=== PATIENT | female | born 2000 | race Caucasian/White ===

== ENCOUNTER 2020-09-08 20:19 | Emergency (ER) | payer BC, SELFPAY ==
--- NOTE | ~2020-09-08 | XR_ITS ---
EXAMINATION: XR chest 2V DATE: 09/08/2020 21:26 INDICATION: Midsternal chest pain TECHNIQUE: PA and lateral views of the chest were obtained. COMPARISON: None FINDINGS: The lungs are clear with no focal airspace opacities, pulmonary edema, pleural effusion or pneumothor ax. The cardiomediastinal silhouette is normal. Visualized bones and soft tissues are unremarkable. IMPRESSION: 1. Normal chest radiograph. Reviewed, dictated and finalized at location A. IMPRESSION: 1. Normal chest radiograph.
[2020-09-08 21:04] VITALS: BP 120/74; PULSE 101; RESP 18; TEMP 36.5; O2SAT 96
--- NOTE | 2020-09-08 21:07 | ECG_ITS ---
Measurements Intervals [place] Rate: 97 P: 69 MT: 148 QRS: 75 QRSD: 90 T: 48 QT: 355 QTc: 451 Interpretive Statements SINUS RHYTHM POSSIBLE LEFT ATRIAL ENLARGEMENT INCOMPLETE RIGHT BUNDLE BRANCH BLOCK BASELINE ARTIFACT- II, III, AVR, AVL, AVF BORDERLINE ECG Electronically Signed On 09-09-2020 7:31:17 CDT by Henrique Díaz D.O.
[2020-09-08 21:17] LABS: Basophils Percent Auto 0.3 % (0.2-1.2); Eosinophils Absolute Auto 0.1 K/mm3 (0-0.3); Eosinophils Percent Auto 1.9 % (0-4.4); Hematocrit 38.1 % (37.0-47.0); Immature Granulocyte Absolute 0.01 K/mm3 (0.00-0.031); Immature Granulocyte Percent A 0.1 % (0-0.5); Lymphocytes Absolute Auto 2.47 K/mm3 (0.9-3.2); Lymphocytes Percent Auto 35.3 % (18.3-44.2); Mean Corpuscular HGB Conc 34.1 g/dl (32-36); Mean Corpuscular Hemoglobin 29.7 pg (26-34); Mean Corpuscular Volume 87.2 fl (80-100); Mean Platelet Volume 8.8 fl (7.4-10.4); Monocytes Absolute Auto 0.5 K/mm3 (0.1-0.6); Monocytes Percent Auto 6.4 % (2.6-8.5); Neutrophils Absolute Auto 3.9 K/mm3 (1.3-6.7); Platelet Count Result 304 k/mm3 (150-375); Red Blood Count 4.37 M/mm3 (4.2-5.4); Red Cell Distribution Width 12.2 % (11.5-14.5)
[2020-09-08 21:29] LABS: Anion Gap 9 mmol/L (8-16); Blood Urea Nitrogen 12 mg/dL (7-17); Calcium 8.8 mg/dL (8.4-10.2); Carbon Dioxide 26 mmol/L (22-30); Chloride 107 mmol/L (98-107); Estimated CRCL calculation 90 ml/min; Estimated Glomerular Filt Rate > 60; Glucose 105 mg/dL (65-105); Potassium 3.5 mmol/L (3.4-5.0); Sodium 142 mmol/L (137-145)
[2020-09-08 21:39] LABS: Troponin I < 0.012 ng/mL (0.000-0.034)
[2020-09-08 21:44] LABS: Prothrombin Time 13.6 Seconds (11.1-14.7)
[2020-09-08 21:46] LABS: Partial Thromboplastin Time 32.4 SECONDS (22.3-36.8)
[2020-09-08 22:55] VITALS: BP 133/64; PULSE 74; RESP 18; TEMP 36.3; O2SAT 100
[2020-09-08 23:02] VITALS: BP 124/77; PULSE 78; RESP 16; O2SAT 100
[2020-09-08 23:05] VITALS: BP 124/77; O2SAT 100
--- NOTE | 2020-09-08 23:11 | ED.CHESTPAIN ---
HPI - Chest Pain General Chief Complaint: Chest Pain Stated Complaint: CP Time Seen by Provider: 09/08/20 23:02 Source: patient Mode of arrival: ambulatory Limitations: no limitations History of Present Illness HPI narrative: Patient is a 19-year-old female complaining of chest pain, midsternal, sharp, radiating to left upper extremity, 9 out of 10, and now resolved started 1 hour prior to arrival. Patient states that she was feeling anxious and was hyperventilating when it happened. Patient states that she is now feeling better and currently denies any symptoms. Patient denies any shortness of breath, abdominal pain, nausea, vomiting, diaphoresis, fever or chills. Related Data Allergies Allergy/AdvReac Type Severity Reaction Status Date / Time No Known Allergies Allergy Verified 09/08/20 21:06 Review of Systems Review of Systems: All systems reviewed & are unremarkable except as noted in HPI and below Constitutional: Constitutional: Denies body ache(s), Denies chills, Denies excessive sweating, Denies fatigue, Denies fever(s), Denies headache(s), Denies lethargy, Denies malaise, Denies weakness and Denies weight loss Eyes: Eyes: Denies blurry vision, Denies change in vision and Denies loss of vision ENT: Denies dizziness, Denies ear discharge, Denies headache(s), Denies lip swelling, Denies epistaxis, Denies nasal congestion, Denies neck pain, Denies throat swelling and Denies tongue swelling Cardiovascular: Cardiovascular: Denies diaphoresis, Denies rapid heart rate, Denies edema, Denies irregular heart rhythm, Denies lightheadedness, Denies palpitations, Denies dyspnea and Denies dyspnea on exertion Respiratory: Respiratory: Denies chest congestion, Denies cough, Denies hemoptysis, Denies dyspnea and Denies dyspnea on exertion Gastrointestinal: Gastrointestinal: Denies abdominal pain, Denies melena, Denies hematochezia, Denies diarrhea, Denies nausea, Denies vomiting and Denies hematemesis Musculoskeletal: Musculoskeletal: Denies abnormal gait, Denies deformity, Denies joint swelling, Denies limited range of motion, Denies neck pain and Denies numbness Neurologic: Denies Abnormal speech present, Denies abnormal gait, Denies confusion, Denies dizziness, Denies headache(s), Denies focal weakness, Denies loss of vision, Denies numbness, Denies Other visual disturbances, Denies Sensory deficit (Neuro) and Denies weakness Psychiatric: Psychiatric: Denies confusion, Denies depression, Denies auditory hallucinations, Denies homicidal ideation and Denies suicidal ideation Endocrine: Endocrine: Denies cold intolerance, Denies excessive sweating, Denies fatigue, Denies heat intolerance and Denies palpitations Hematologic/Lymphatic: Hematologic/Lymphatic: Denies easy bleeding and Denies easy bruising Allergic/Immunologic: Allergic/Immunologic: Denies lip swelling, Denies throat swelling and Denies tongue swelling PMFSH Comments Past medical history: None Family history: Negative for NM, coronary disease Social history: Non-smoker no EtOH or drug use Exam Const: General: cooperative, healthy appearing, comfortable, no acute distress, well developed, alert and awake; No confusion Orientation/consciousness: oriented to person, oriented to place, oriented to time, patient oriented x3 and No confusion Limitations: no limitations HENMT: Head: normal to inspection, normocephalic and atraumatic Ears: hearing grossly normal bilaterally, TM normal on the right and TM normal on the left General nose exam: Normal external nose present, Normal nares present and No nasal discharge present Face and sinus: normal facial exam Mouth: Yes Normal oral and palatal mucosa present, Yes lip normal, Yes tongue normal and Yes oropharynx normal Throat: posterior oropharynx normal, tonsils normal and uvula midline Eyes: General: appearance normal, both eyes and all related structures Pupils: Equal, round and reactive pupils present EOM: EOMs intact bilaterally
--- NOTE | 2020-09-08 23:11 | PC.NURSE ---
GERSON spoke with Keara to add a D-Dimer to labs.
[2020-09-08 23:57] LABS: D Dimer < 0.22 ug/mL (<0.48)
[2020-09-09 00:15] VITALS: BP 126/74; PULSE 78; RESP 18; O2SAT 99
== END 2020-09-09 00:30 | disposition home or self-care (01) ==
PROVIDERS: Emergency Provider Emergency Medicine
DX: R07.89 Other chest pain (principal); I45.10 Unspecified right bundle-branch block; R94.31 Abnormal electrocardiogram [ECG] [EKG]
CPT/HCPCS: 36415; 71046; 80048; 84484; 85025; 85380; 85610; 85730; 93005; 99284

== ENCOUNTER 2021-01-05 11:47 | Emergency (ER) | payer BC, SELFPAY ==
[2021-01-05 11:54] VITALS: BP 140/80; PULSE 55; RESP 15; TEMP 36.7; O2SAT 99
--- NOTE | 2021-01-05 13:48 | ED.NECK ---
HPI - Neck Pain/Injury General Chief Complaint: Neck Pain/Injury Stated Complaint: Neck Pain Time Seen by Provider: 01/05/21 13:11 Source: patient Mode of arrival: ambulatory Limitations: no limitations History of Present Illness HPI Narrative: Patient is 20 years old white female with 2 to 3 days ago with pain at the right side of the neck and right upper back/trapezius muscle, l, worse with certain movement and position, better with certain position. Patient denies any fever, chills, nausea, vomiting, difficulty swallowing or breathing, chest pain or shortness of breath, patient also denies any lymphadenopathy or neck mass. Patient denies any trauma. Patient is not vaccinated for COVID-19. Patient declined to take any pain medication in the emergency room. Related Data Allergies Allergy/AdvReac Type Severity Reaction Status Date / Time No Known Allergies Allergy Verified 01/05/21 12:09 Review of Systems Review of Systems: CONSTITUTIONAL: Denies fever, chills, or sweats. EYES: Denies visual changes, redness, or discharge. ENT: Denies rhinorrhea, congestion, sore throat, or otalgia. CARDIOVASCULAR: Denies chest pain, palpitations, or edema. RESPIRATORY: Denies cough or dyspnea. GASTROINTESTINAL: Denies abdominal pain, nausea, vomiting, or diarrhea. GENITOURINARY: Denies dysuria or hematuria. SKIN: Denies rash or itching. MUSCULOSKELETAL: Denies back pain, joint pain, or myalgia. NEUROLOGIC: Denies headache, numbness, or weakness. PSYCHIATRIC: Denies anxiety or depression. Exam Narrative: General appearance: Well-developed, well-nourished Skin: Normal color Head: Normocephalic, nontraumatic Eyes: Clear conjunctiva ENT: Oropharynx normal, ears normal, nose normal Neck: Supple, nontender Chest and respiratory: Airway patent, no respiratory distress, no accessory muscle use Heart: Regular rate/rhythm Abdomen: Soft, nontender, no organomegaly, quiet bowel sounds Vascular: Normal peripheral pulses, normal capillary refill. Musculoskeletal: Slight tenderness right side of neck, and right trapezius muscle, no bruises, no rash, no swelling,, no lymphadenopathy, no mass Neurologic: Alert and oriented ?3, DETAIL TECHNICIAN is normal as tested, no gross motor deficit Course Course Emergency Course: Stable Vital Signs Vital signs: Vital Signs Temperature 36.7 C 01/05/21 11:54 Pulse Rate 55 L 01/05/21 11:54 Respiratory Rate 15 01/05/21 11:54 Blood Pressure 140/80 01/05/21 11:54 Pulse Oximetry 99 01/05/21 11:54 Temperature 36.7 C 01/05/21 11:54 Pulse Rate 55 L 01/05/21 11:54 Respiratory Rate 15 01/05/21 11:54 Blood Pressure 140/80 01/05/21 11:54 Pulse Oximetry 99 01/05/21 11:54 MDM - Neck Pain/Injury MDM Narrative Medical decision making narrative: Musculoskeletal pain is my concern. No labs or imaging required at this time. Critical Care Time Critical Care Time Critical Care Time: No Discharge Plan Discharge Clinical Impression: Acute neck pain Patient Disposition: Home, Self-Care Condition: Stable Instructions: Acute Neck Pain (ED) Additional Instructions: Return if symptoms are worsening , call your family physician for appointment, take Tylenol as as needed for aches and pain, continue home medications. Prescriptions: New naproxen [Naprosyn] 500 mg tablet 500 mg PO BID PRN (Reason: pain) Qty: 10 RF: 0 cyclobenzaprine 10 mg tablet 10 mg PO TID PRN (Reason: muscle spasm) Qty: 20 RF: 0 Follow-up/Referrals: PHYSICIAN,BAIL BONDING AGENT [Primary Care Provider] - Jovany Calderon MD [Physician] - Stand Alone Forms: Work/School Release IP
== END 2021-01-05 14:10 | disposition home or self-care (01) ==
PROVIDERS: Emergency Provider Emergency Medicine
DX: M54.2 Cervicalgia (principal)
CPT/HCPCS: 99283

== ENCOUNTER 2021-08-08 20:21 | Emergency (ER) | payer BC, SELFPAY ==
[2021-08-08] VITALS (26 sets, daily range): BP systolic 119–150; BP diastolic 66–102; PULSE 77–110; RESP 13–23; TEMP 36.9; O2SAT 97–100
[2021-08-08 21:24] LABS: Basophils Percent Auto 0.1 % (0.2-1.2); Eosinophils Absolute Auto 0.1 K/mm3 (0-0.3); Eosinophils Percent Auto 1.4 % (0-4.4); Hematocrit 36.3 % (37.0-47.0); Hemoglobin 12.3 g/dL (12.0-15.0); Immature Granulocyte Absolute 0.02 K/mm3 (0.00-0.031); Immature Granulocyte Percent A 0.2 % (0-0.5); Lymphocytes Absolute Auto 2.61 K/mm3 (0.9-3.2); Lymphocytes Percent Auto 30.1 % (18.3-44.2); Mean Corpuscular HGB Conc 33.9 g/dl (32-36); Mean Corpuscular Hemoglobin 29.9 pg (26-34); Mean Corpuscular Volume 88.1 fl (80-100); Mean Platelet Volume 8.9 fl (7.4-10.4); Monocytes Absolute Auto 0.5 K/mm3 (0.1-0.6); Monocytes Percent Auto 5.9 % (2.6-8.5); Neutrophils Absolute Auto 5.4 K/mm3 (1.3-6.7); Neutrophils Percent Auto 62.3 % (45.5-73.1); Platelet Count Result 294 k/mm3 (150-375); Red Blood Count 4.12 M/mm3 (4.2-5.4); Red Cell Distribution Width 13.1 % (11.5-14.5); White Blood Count 8.7 K/mm3 (4.5-10.0)
--- NOTE | 2021-08-08 22:11 | ED.FEMALEGU ---
HPI - Female Genitourinary General Chief complaint: Vaginal Bleeding <Mita Velazquez PA-C - Last Filed: 08/09/21 01:12> Stated complaint: Vaginal Bleeding, 8 weeks <Mita Velazquez PA-C - Last Filed: 08/09/21 01:12> Time Seen by Provider: 08/08/21 21:52 <Mita Velazquez PA-C - Last Filed: 08/09/21 01:12> Source: patient <SAM Kaur Last Filed: 08/09/21 01:12> Mode of arrival: ambulatory <SAM Kaur Last Filed: 08/09/21 01:12> Limitations: no limitations <Mita Velazquez PA-C - Last Filed: 08/09/21 01:12> History of Present Illness HPI Narrative: Patient is a 20-year-old female who presents to the ED with report of vaginal bleeding. Patient is and reported she was currently about 8 weeks . She sees an SUPERINTENDENT [employer]STRU[employer] at [facility] in [place], [place]. Patient reports she began bleeding slightly yesterday. She had an ultrasound done today, which did confirm an intrauterine . Patient was told by her SUPERINTENDENT CAR CONSTRUCTION if she began bleeding heavier to come to the emergency room. Patient reports she began bleeding heavier around 4 PM today, noting she has been going through 1 heavy pad an hour. She has had some mild lower abdominal cramping and lightheadedness, but denies any fever, chills, nausea, vomiting, headache, weakness, urinary sx's, back pain. <Mita Velazquez PA-C - Last Filed: 08/09/21 01:12> Related Data Allergies/Adverse reactions: Allergies Allergy/AdvReac Type Severity Reaction Status Date / Time No Known Allergies Allergy Verified 08/08/21 20:41 <Mita Velazquez PA-C - Last Filed: 08/09/21 01:12> Review of Systems Review of Systems: CONSTITUTIONAL: Denies fever, chills, or sweats. CARDIOVASCULAR: Denies chest pain. RESPIRATORY: Denies dyspnea. GASTROINTESTINAL: Reports lower ABD cramping. Denies nausea, vomiting, or diarrhea. GENITOURINARY: Reports vaginal bleeding. Denies dysuria or hematuria. MUSCULOSKELETAL: Denies back pain. NEUROLOGIC: Reports lightheadedness. Denies headache, numbness, or weakness. <Mita Velazquez PA-C - Last Filed: 08/09/21 01:12> All systems reviewed & are unremarkable except as noted in HPI and below <Mita Velazquez PA-C - Last Filed: 08/09/21 01:12> PMFSH Past Medical History Medical History: Medical History (Updated 08/09/21 @ 01:01 by Mita Velazquez PA-C) History of miscarriage <Mita Velazquez PA-C - Last Filed: 08/09/21 01:12> Surgical History Surgical History: Surgical History (Updated 08/09/21 @ 01:01 by Mita Velazquez PA-C) No pertinent past surgical history <Mita Velazquez PA-C - Last Filed: 08/09/21 01:12> Social History Social History: Social History (Updated 08/09/21 @ 01:01 by Mita Velazquez PA-C) Smoking status: Never smoker <Mita Velazquez PA-C - Last Filed: 08/09/21 01:12> Exam Narrative: GENERAL: Well appearing, well-nourished, non-toxic, in no acute distress. HEAD: Normocephalic, atraumatic. NECK: Supple. No adenopathy, no masses. RESPIRATORY: Airway patent, respirations nonlabored. Clear to auscultation bilaterally, no rales, rhonchi, wheezing. CARDIOVASCULAR: Regular rate and rhythm without murmurs, rubs, or gallops. Peripheral pulses 2+ and equal bilaterally. ABDOMINAL: Soft, no significant tenderness to palpation, nondistended, no hepatosplenomegaly. Normoactive BS. PELVIC: External genitalia unremarkable. No pooling of blood in vaginal vault or large clots seen on exam. Cervix soft, os slightly open with small clot through opening. No significant bleeding from os. No significant tenderness on exam. MUSCULOSKELETAL: Moves all extremities. Strength/ROM intact without gross deformities or TTP. SKIN: Warm, dry, normal color. No rashes. NEURO: A&O X3. Speech clear. Cranial nerves II-XII grossly intact. Steady gait. No ataxic movements. PSYCHIATRIC: Appropriate mood and affect. Normal interaction. <Mita Velazquez PA-C - Last Filed: 0
--- NOTE | 2021-08-08 22:27 | PC.NURSE ---
RN went in to perform heart tones. Pt states she had an US that was unsuccesful at finding fetus HR. DOCA made aware.
[2021-08-09 00:03] VITALS: BP 121/63; PULSE 87; RESP 16; O2SAT 96
== END 2021-08-09 00:08 | disposition home or self-care (01) ==
PROVIDERS: Emergency Provider Emergency Medicine
DX: O03.9 Complete or unspecified spontaneous abortion without complication (principal)
CPT/HCPCS: 36415; 84702; 85025; 85461; 99284

== ENCOUNTER 2023-07-12 16:49 | Outpatient (CLI) | payer BC, SELFPAY ==
--- NOTE | ~2023-07-12 | US_ITS ---
EXAMINATION: US thyroid DATE: 07/12/2023 17:47 INDICATION: Goiter. TECHNIQUE: Multiple ultrasound images of the thyroid were obtained. COMPARISON: None. FINDINGS: The right thyroid lobe measures 5.2 x 1.8 x 2.1 cm. The left thyroid lobe is absent in the right thy roid lobe, there is a 7 mm mixed cystic and solid, hypoechoic, wider than tall nodule with smooth mar gin without echogenic foci (TI-RADS TR3). In the right thyroid lobe, there is an 8 mm solid, very hyp oechoic, wider than tall nodule with smooth margin without echogenic foci (TR4). IMPRESSION: 1. Small thyroid nodules, likely not clinically significant. No follow-up is needed. Reviewed, dictated and finalized at location A. [employer]SO[employer] DYNAM[employer] MANAGER ARCHITECT IMPRESSION: 1. Small thyroid nodules, likely not clinically significant. No follow-up is ne eded.
== END 2023-07-12 16:50 | disposition home or self-care (01) ==
LOC: ANHIMG 16:49
PROVIDERS: PCP Physician Assistant; Visit Provider Physician Assistant
DX: E04.2 Nontoxic multinodular goiter (principal)
CPT/HCPCS: 76536